=== PATIENT | male | born 1950 | race Caucasian/White ===

== ENCOUNTER 2020-12-18 16:52 | Inpatient (IN) | payer MEDICARE ==
[~2020-12-18] VITALS: Ht 175.3 cm; Wt 82.6 kg
[2020-12-18] MEDS ORDERED: ALBUTEROL SULF8.5 GM INH (16:55)
[2020-12-18] MEDS ORDERED: LASIX20 MG PO (16:56)
[2020-12-18] MEDS ORDERED: REMERON30 MG PO (16:56)
[2020-12-18] MEDS ORDERED: COREG 3.1253.125 MG PO (16:56)
[2020-12-18] MEDS ORDERED: OMEPRAZOLE40 MG PO (16:57)
[2020-12-18] MEDS ORDERED: PERCOCET 7.5/321 TAB PO (16:57)
[2020-12-18] MEDS ORDERED: SPIRIVA RESPIMAT4 GM INH (16:57)
[2020-12-18] MEDS ORDERED: ALDACTONE25 MG PO (16:58)
[2020-12-18] MEDS ORDERED: SYMBICORT 16010.2 GM INH (16:58)
[2020-12-18 17:16] LABS: BASOPHILS 0.7 % (0-2); EOSINOPHILS 2.6 % (0-7); HEMATOCRIT 43.1 % (42.0-54.0); HEMOGLOBIN 14.7 g/dL (13.5-17.5); IMMATURE GRANULOCYTES 0.2 % (0-5); LYMPHOCYTE ABS# 2.06 10x3/uL (1.32-3.57); LYMPHOCYTES 23.4 % (15-50); MCH 30.3 pg (26.0-34.0); MCHC 34.1 g/dL (31.0-37.0); MCV 88.9 fL (80.0-100.0); MEAN PLATELET VOLUME 9.7 fL (7.4-10.4); MONOCYTES 9.9 % (2-11); NEUTROPHIL ABS# 5.58 10x3/uL (1.78-5.38); NEUTROPHILS 63.2 % (40-80); PLATELET COUNT 237 10x3/uL (130-400); RBC 4.85 10x6/uL (4.20-6.10); RDW 12.9 % (11.5-14.5); WBC 8.8 10x3/uL (4.8-10.8)
[2020-12-18 17:44] LABS: CALC OSMOLALITY 276 mosm/kg (275-300); CALCIUM 8.8 mg/dL (8.5-10.1); CARBON DIOXIDE 24.1 mmol/L (21.0-32.0); CHLORIDE - SERUM 102 mmol/L (98-107); GLUCOSE 125 mg/dL (74-106); POTASSIUM - SERUM 3.9 mmol/L (3.5-5.1); SODIUM 138 mmol/L (136-145); UREA NITROGEN 12 mg/dL (7-18); eGFR NON AFRICAN AMERICAN 79 mL/min (90-120)
[2020-12-18 18:05] LABS: ALKALINE PHOSPHATASE 100 U/L (30-120); ALT (SGPT) 34 U/L (10-68); AMYLASE - SERUM 26 U/L (25-115); BILIRUBIN - TOTAL 0.31 mg/dL (0.2-1.3); LIPASE 106 U/L (73-393); PROTEIN - SERUM 7.4 g/dL (6.4-8.2)
[2020-12-18 18:11] LABS: TROPONIN-I 0.118 ng/mL (0.000-0.060)
[2020-12-18 20:24] LABS: CKMB 7.7 U/L (0.0-3.6); CREATINE KINASE 348 UL (21-232)
[2020-12-18 20:34] LABS: BILIRUBIN NEGATIVE (NEGATIVE); KETONE NEGATIVE (NEGATIVE); NITRITE NEGATIVE (NEGATIVE); UROBILINOGEN NORMAL mg/dL (< 2)
[2020-12-18 23:21] VITALS: BP 130/80; BMI 27.0
--- NOTE | 2020-12-19 02:23 | NUR ---
RECIEVED REPORT FROM ER. ARRIVED TO FLOOR IN W/C. A/O X4. UP AD KLEVER TO B/R. IV TO RT HAND SL. DENIES ANY NEEDS AT THIS TIME.
[2020-12-19 02:24] LABS: CKMB 6.9 U/L (0.0-3.6); CREATINE KINASE 276 UL (21-232)
[2020-12-19 02:25] LABS: TROPONIN-I 0.087 ng/mL (0.000-0.060)
[2020-12-19 04:02] VITALS: BP 117/83
[2020-12-19 07:39] VITALS: BP 123/60
[2020-12-19 09:13] LABS: CKMB 5.5 U/L (0.0-3.6); CREATINE KINASE 238 UL (21-232); TROPONIN-I 0.065 ng/mL (0.000-0.060)
[2020-12-19 11:54] VITALS: BP 138/75
[2020-12-19 12:28] VITALS: BMI 26.8
[2020-12-19 13:52] VITALS: Ht 175.3 cm; Wt 82.6 kg
[2020-12-19 15:49] VITALS: BP 135/73
--- NOTE | 2020-12-19 19:38 | NUR ---
RECIEVED LAYING IN BED WITH EYES OPEN AND TV ON. ALERT AND ORIENTED X4. UP AD KLEVER. SCD'S IN PLACE AND USING INCENTIVE SPIROMETER. IV TO RT JOANNA PATTERSON DENIES ANY NEEDS AT THIS TIME.
[2020-12-19 20:00] VITALS: BP 122/65
[2020-12-20] VITALS: BP 118/59; BP 145/82
[2020-12-20 04:00] VITALS: BP 120/66
[2020-12-20 08:10] VITALS: BP 123/73
[2020-12-20 16:11] VITALS: BP 118/62
--- NOTE | 2020-12-20 19:57 | NUR ---
RECIEVED UP AMBULATING AROUND ROOM. ALERT AND ORIENTED X4. UP AD KLEVER. NO IV AT THIS TIME. ON ROOM AIR. STILL STATES HE HAS ABDOMINAL PAIN AND THAT THERE IS A PLAN FOR WHEN HE GETS OUT OF THE HOSPITAL. REQUESTING PAIN MEDICATION AT HS. DENIES ANY NEEDS AT THIS TIME. TELEMETRY IN PLACE AND ENCOURAGED TO WEAR SCD'S AND USE INCENTIVE SPIROMETER.
[2020-12-20 20:42] VITALS: BP 126/67
[2020-12-21] VITALS: BP 107/60
[2020-12-21 04:00] VITALS: BP 106/59
[2020-12-21 08:32] VITALS: BP 125/67
--- NOTE | 2020-12-21 10:11 | NUR ---
Nutrition Follow-up: Pt reports appetite is ok and ate majority of breakfast this AM. Denies N/V/C/D. C/o abd distention & early satiety. GI following. Diet: Regular No new wt; last wt: 182# (12/19) Last BM: 12/20 Labs reviewed Meds noted: Lasix, Lactulose, Miralax, Protonix, Remeron, electrolyte protocol -Encourage PO intake and honor food preferences. -RD will follow up within 5-7 days if pt still admitted.
[2020-12-21 11:00] VITALS: BP 11/55
[2020-12-21 20:41] VITALS: BP 121/72
--- NOTE | 2020-12-21 21:00 | NUR ---
PT SITTING IN BED AAOX4. PT C/O ABDOMINAL PAIN. ABDOMEN IS DISTENDED AND FIRM WITH A VISIBLE PROTUSION. PT DENIES SOB BUT IS WEARING 2L BNC. PT STATES HE PUTS IT ON AND TAKES IT OFF NEEDED. PT REFUSED BOTH THE IV LASIX AND THE PO LASIX. EDUCATION DONE ABOUT MEDICATIONS AND PT VERBALIZED UNDERSTANDING BUT STILL REFUSED. PT HAS A STEADY GAIT AND AMBULATES INDEPENDENTLY. NO IV PRESENT.
[2020-12-22 04:20] VITALS: BP 132/73
[2020-12-22 05:39] LABS: BASOPHILS 0.6 % (0-2); EOSINOPHILS 4.8 % (0-7); HEMATOCRIT 40.6 % (42.0-54.0); HEMOGLOBIN 13.7 g/dL (13.5-17.5); IMMATURE GRANULOCYTES 0.3 % (0-5); LYMPHOCYTE ABS# 1.41 10x3/uL (1.32-3.57); LYMPHOCYTES 16.4 % (15-50); MCHC 33.7 g/dL (31.0-37.0); MCV 88.8 fL (80.0-100.0); MEAN PLATELET VOLUME 10.5 fL (7.4-10.4); MONOCYTES 11.3 % (2-11); NEUTROPHIL ABS# 5.74 10x3/uL (1.78-5.38); NEUTROPHILS 66.6 % (40-80); PLATELET COUNT 205 10x3/uL (130-400); RBC 4.57 10x6/uL (4.20-6.10); RDW 12.5 % (11.5-14.5); WBC 8.6 10x3/uL (4.8-10.8)
[2020-12-22 06:22] LABS: ALBUMIN 3.5 g/dL (3.4-5.0); ANION GAP 7.6 mmol/L (8-16); BILIRUBIN - TOTAL 0.23 mg/dL (0.2-1.3); CALCIUM 8.5 mg/dL (8.5-10.1); CARBON DIOXIDE 32.4 mmol/L (21.0-32.0); CREATININE - SERUM 1.1 mg/dL (0.6-1.3); PROTEIN - SERUM 6.9 g/dL (6.4-8.2)
[2020-12-22 08:23] VITALS: BP 120/69
--- NOTE | 2020-12-22 09:41 | EC ---
PATIENT:KELLEY GASTON DATE OF SERVICE: 12/18/20 SEX: M MEDICAL RECORD: [id number] DATE OF : [birth year] LOCATION:D.M2 D.211 AGE OF PATIENT: 70 ADMISSION DATE: 12/18/20 REFERRING PHYSICIAN: INTERPRETING PHYSICIAN: TAYLOR SCOTT MD ECHOCARDIOGRAM REPORT ECHO CHARGES 4 ECHO COMPLETE Date: 12/20/20 CLINICAL DIAGNOSIS: ABN TROPONIN ECHOCARDIOGRAPHIC MEASUREMENTS (adult normal given) AC root (d.<3.7cm) 3.6 cm LV Septum d (<1.2 cm> 1.4 cm Valve Excursion 1.4 cm LV Septum (systole) 2.0 cm Left Atria (s.<4.0cm> 4.4 cm LVPW d(<1.2cm) 0.8 cm RV (d.<2.3cm) 3.3 cm LVPW (sytole) 1.2 cm LV diastole(<5.6CM) 5.3 cm MV E-F(>70mm/sec) cm LV systole 3.6 cm LVOT Diameter 2.0 cm MV exc.(>10mm) 0.6 cm Est.ejection fraction (50-75%) % DOPPLER: LVIT cm/sec A 90 cm/sec E 49 cm/sec LA cm/sec RVSP 24 mmHg LVOT 218 cm/sec AOP1/2T m/s Asc. Ao 221 cm/sec RVOT 87 cm/sec RA cm/sec PA 86 cm/sec AV Gradient Peak 19.5 mmHg AV Mean 11.0 mmHg AV Area 3.1 cm MV Gradient Peak 3.4 mmHg MV Mean 1.0 mmHg MV Area cm COMMENTS: Success Coach: Gabrielle STACY Automotive Specialty Technician: 3 Dr. Moses TAPE# Pericardial Effusion N DATE OF SERVICE: Adequate 2D, color-flow imaging, spectral Doppler, and M-Mode FINDINGS: Borderline LVH. LV internal dimensions are normal. LV function shows mild global hypokinesis. EF is low limits of normal to mildly reduced at 45% to 50%. Bioprosthetic aortic valve was noted with good Doppler velocity and no AI. Left atrium was mildly dilated at 4.4 cm. Mitral valve shows no prolapse. Trace MR. Right side is grossly normal. Trace TR. ECHOCARDIOGRAM REPORT [id number] KELLEY GASTON TRANSINT:[id number] Voice Confirmation ID: [id number] DOCUMENT ID: [id number] TAYLOR SCOTT MD at 0941 CC: [id number] DICTATION DATE: 12/21/20826 TOUR ACTOR: 12/21/20 09 ADM IN [place] [id number] [place] [id number]
--- NOTE | 2020-12-22 11:14 | NUR ---
PER IDT MEETING, I PAGED CARDIOLOGY (NASIMA SPENCER APN) FOR UPDATE ON PATIENT. SHE IS GOING TO LOOK AT THE CHART AND GET BACK WITH US.
[2020-12-22 11:51] VITALS: BP 121/70
--- NOTE | 2020-12-22 14:11 | MORECARE ---
CASE MANAGEMENT DISCHARGE SUMMARY PATIENT: KELLEY GASTON UNIT: [id number] ADM DATE: 12/18/20 AGE: 70 : 51 SEX: M ROOM/BED: D.2115 AUTHOR: FELIBERTO AVILA PHYSICIAN: REFERRING PHYSICIAN: SCOTT DENNISON MD DATE OF SERVICE: 12/22/20 Discharge Plan Patient Name: KELLEY GASTON Facility: [facility]:[place] : 1950 Planned Disposition: Home Anticipated Discharge Date: Discharge Date: Expected LOS: Initial Reviewer: [id number] Initial Review Date: 12/22/2020 Generated: 12/22/20 3:10 pm Patient Name: KELLEY GASTON Page [id number] at 1411 All edits/amendments must be made on the electronic document DICTATION DATE: 12/22/20 1410 HOUSEHOLD REFRIGERATION MECHANIC: MURPHY 12/22/20 1410 RPT#: [id number] DC DATE: STATUS: ADM IN [facility] [address] [place] [address] END OF REPORT
[2020-12-22 15:14] VITALS: BP 133/72
--- NOTE | 2020-12-22 15:42 | MORECARE ---
CASE MANAGEMENT DISCHARGE SUMMARY PATIENT: KELLEY PRATT UNIT: [id number] ADM DATE: 12/18/20 AGE: 70 : 51 SEX: M ROOM/BED: D.[facility]5 AUTHOR: FELIBERTO AVILA PHYSICIAN: REFERRING PHYSICIAN: SCOTT DENNISON MD DATE OF SERVICE: 12/22/20 Discharge Plan Patient Name: KELLEY PRATT Facility: [facility]:[place] : 1950 Planned Disposition: Home Anticipated Discharge Date: Discharge Date: Expected LOS: Initial Reviewer: [email or web address] Initial Review Date: 12/22/2020 Generated: 12/22/20 4:41 pm DCPIA - Discharge Planning Initial Assessment Updated by [email or web address]: Maureen Vick on 12/22/20 3:41 pm * Is the patient Alert and Oriented? Yes * How many steps to enter\exit or inside your home? 0/0 * PCP Dr. Ferris * Pharmacy [facility] on [address] * Preadmission Environment Home with Family * ADLs Independent * Equipment Other Oxygen * Other Equipment Portable oxgyen * List name and contact numbers for known caregivers / representatives who currently or will assist patient after discharge: Aislinn Pratt - [facility] - [phone] * Verbal permission to speak to the caregivers and representatives has been obtained from the patient. Yes * Community resources currently utilized None * Additional services required to return to the preadmission environment? No * Can the patient safely return to the preadmission environment? Yes * Has this patient been hospitalized within the prior 30 days at any hospital? No Coverage Notice Reviewer: [id number] - Maureen Vick Notice Issued Date-Time: 12/22/2020 15:38 Notice Type: IM Discharge Notice Notice Delivered To: Patient Relationship to Patient: Self Veneer Manufacturer Name: Delivery Method: HAND - Hand Delivered Rosalia Days: Prior Verbal Notification: Recipient Understood Notice: Yes Recipient Signature: Yes Med Rec Note Co-signed by Attending: Coverage Notice Comment: IMM explained, signed, given, copy placed in MR Last DP export: 12/22/20 1:11 p Patient Name: KELLEY PRATT Page [id number] at 1542 All edits/amendments must be made on the electronic document DICTATION DATE: 12/22/20 154 NURSING CARE ATTENDANT: MURPHY 12/22/20 1541 RPT#: [id number] DC DATE: STATUS: ADM IN [facility] [address] [place] [address] END OF REPORT
--- NOTE | 2020-12-22 15:51 | MORECARE ---
CASE MANAGEMENT DISCHARGE SUMMARY PATIENT: KELLEY PRATT UNIT: [id number] ADM DATE: 12/18/20 AGE: 70 : 51 SEX: M ROOM/BED: D.2115 AUTHOR: MARGARITA,DOC PHYSICIAN: REFERRING PHYSICIAN: SCOTT DENNISON MD DATE OF SERVICE: 12/22/20 Discharge Plan Patient Name: KELLEY PRATT Facility: [facility]:[place] : 1950 Planned Disposition: Home Anticipated Discharge Date: Discharge Date: Expected LOS: Initial Reviewer: [email or web address] Initial Review Date: 12/22/2020 Generated: 12/22/20 4:50 pm Comments DCP- Discharge Planning Updated by [email or web address]: Maureen Vick on 12/22/20 2:[address] Patient Name: KELLEY PRATT Admission Status: ER Accout number: [id number] Admission Date: 12-18-2020 : 1950 Admission Diagnosis:UNSPECIFIED ABDOMINAL PAIN Attending: SCOTT DENNISON Current LOS: 4 Anticipated DC Date: Planned Disposition: Home Primary Insurance: [facility] MEDIC[employer] SOLUTIONS DC PLAN: Home with sister ANTICIPATED DC NEEDS: No needs identified CM met with patient to complete initial dc planning assessment. CM educated patient on the CM role and verbal consent given by patient to complete assessment. CM verified patient's address, phone number, and emergency contact phone numbers. Patient lives at home with his sister, Aislinn. At discharge patient plans to return and feels this is a safe discharge. CM discussed availability of home health, rehab services, and medical equipment. Patient states he is unsure if they are going to do his hernia operation prior to discharge, so is unsure of what his needs will be. Transportation provider at discharge will be either himself or his sister. I informed him that if he had received any new narcotics, that he will need his sister to drive, voiced understanding. States he has oxygen as needed at home on 2 liters NC and portable that he received from [facility], denies any other needs at this time. IMM explained, signed, given and copy placed in MR. CM will continue to follow and will assist as needed with dc plans/needs. Quarry Boss: Maureen Vick DCPIA - Discharge Planning Initial Assessment Updated by [id number]: Maureen Vick on 12/22/20 3:41 pm * Is the patient Alert and Oriented? Yes * How many steps to enter\exit or inside your home? 0/0 * PCP Dr. Ferris * Pharmacy [facility] on [address] * Preadmission Environment Home with Family * ADLs Independent * Equipment Other Oxygen * Other Equipment Portable oxgyen * List name and contact numbers for known caregivers / representatives who currently or will assist patient after discharge: Aislinn Pratt - [facility] [phone] * Verbal permission to speak to the caregivers and representatives has been obtained from the patient. Yes * Community resources currently utilized None * Additional services required to return to the preadmission environment? No * Can the patient safely return to the preadmission environment? Yes * Has this patient been hospitalized within the prior 30 days at any hospital? No Coverage Notice Reviewer: [id number] - Maureen Vick Notice Issued Date-Time: 12/22/2020 15:38 Notice Type: IM Discharge Notice Notice Delivered To: Patient Relationship to Patient: Self Traffic Lieutenant Name: Delivery Method: HAND - Hand Delivered Rosalia Days: Prior Verbal Notification: Recipient Understood Notice: Yes Recipient Signature: Yes Med Rec Note Co-signed by Attending: Coverage Notice Comment: IMM explained, signed, given, copy placed in MR Last DP export: 12/22/20 2:42 p Patient Name: KELLEY PRATT Page [phone] at 1551 All edits/amendments must be made on the electronic document DICTATION DATE: 12/22/201550 ROSE GRADER: MURPHY 12/22/20 155 RPT#: [id number] DC DATE: STATUS: ADM IN [facility] [address] [place] [address] END OF REPORT
[2020-12-22] MEDS ORDERED: CHRONULAC30 ML PO (18:16)
[2020-12-22] MEDS ORDERED: PERCOCET 5-3251 TAB PO (18:17)
--- NOTE | 2020-12-22 19:13 | NUR ---
DISCHARGE INSTRUCTIONS REVIEWED AND SIGNED. SCRIPT FOR PAIN MED GIVEN TO PT. WHEELED TO ER FOR DISCHARGE.
--- NOTE | 2020-12-23 13:49 | MORECARE ---
CASE MANAGEMENT DISCHARGE SUMMARY PATIENT: KELLEY PRATT UNIT: [id number] ADM DATE: 12/18/20 AGE: 70 : 51 SEX: M ROOM/BED: D.2025 AUTHOR: MARGARITA,DOC PHYSICIAN: REFERRING PHYSICIAN: SCOTT DENNISON MD DATE OF SERVICE: 12/23/20 Discharge Plan Patient Name: KELLEY PRATT Facility: [facility]:[place] : 1950 Planned Disposition: Home Anticipated Discharge Date: Discharge Date: 12/22/2020 Expected LOS: 0 Initial Reviewer: [email or web address] Initial Review Date: 12/22/2020 Generated: 12/23/20 2:48 pm Comments DCP- Discharge Planning Updated by [email or web address]: Maureen Vick on 12/22/20 2:[address] Patient Name: KELLEY PRATT Admission Status: ER Accout number: [id number] Admission Date: 12-18-2020 : 1950 Admission Diagnosis:UNSPECIFIED ABDOMINAL PAIN Attending: SCOTT DENNISON Current LOS: 4 Anticipated DC Date: Planned Disposition: Home Primary Insurance: [facility] MEDICARE SOLUTIONS DC PLAN: Home with sister ANTICIPATED DC NEEDS: No needs identified CM met with patient to complete initial dc planning assessment. CM educated patient on the CM role and verbal consent given by patient to complete assessment. CM verified patient's address, phone number, and emergency contact phone numbers. Patient lives at home with his sister, Aislinn. At discharge patient plans to return and feels this is a safe discharge. CM discussed availability of home health, rehab services, and medical equipment. Patient states he is unsure if they are going to do his hernia operation prior to discharge, so is unsure of what his needs will be. Transportation provider at discharge will be either himself or his sister. I informed him that if he had received any new narcotics, that he will need his sister to drive, voiced understanding. States he has oxygen as needed at home on 2 liters NC and portable that he received from [facility], denies any other needs at this time. IMM explained, signed, given and copy placed in MR. CM will continue to follow and will assist as needed with dc plans/needs. Endo Tech: Maureen Vick DCPIA - Discharge Planning Initial Assessment Updated by [id number]: Maureen Vick on 12/22/20 3:41 pm * Is the patient Alert and Oriented? Yes * How many steps to enter\exit or inside your home? 0/0 * PCP Dr. Ferris * Pharmacy [facility] on [address] * Preadmission Environment Home with Family * ADLs Independent * Equipment Other Oxygen * Other Equipment Portable oxgyen * List name and contact numbers for known caregivers / representatives who currently or will assist patient after discharge: Aislinn Pratt - [facility] [phone] * Verbal permission to speak to the caregivers and representatives has been obtained from the patient. Yes * Community resources currently utilized None * Additional services required to return to the preadmission environment? No * Can the patient safely return to the preadmission environment? Yes * Has this patient been hospitalized within the prior 30 days at any hospital? No Coverage Notice Reviewer: [id number] - Maureen Vick Notice Issued Date-Time: 12/22/2020 15:38 Notice Type: IM Discharge Notice Notice Delivered To: Patient Relationship to Patient: Self Group Home Supervisor Name: Delivery Method: HAND - Hand Delivered Rosalia Days: Prior Verbal Notification: Recipient Understood Notice: Yes Recipient Signature: Yes Med Rec Note Co-signed by Attending: Coverage Notice Comment: IMM explained, signed, given, copy placed in MR Last DP export: 12/22/20 2:51 p Patient Name: KELLEY PRATT Page [id number] at 1349 All edits/amendments must be made on the electronic document DICTATION DATE: 12/23/20 1348 GEOPHYSICAL LABORATORY DIRECTOR: MURPHY 12/23/20 1348 RPT#: [id number] DC DATE:12/22/20 STATUS: DIS IN [facility] [address] [place] [address] END OF REPORT
[2020-12-27] MEDS ORDERED: BAYER CHEWABLE81 MG PO (11:09)
[2020-12-27] MEDS ORDERED: PERCOCET 10-321 EAC1 PO (11:10)
== END 2020-12-22 19:14 | disposition home or self-care (01) | DRG 395 ==
LOC: D.ER 16:52 → D.M2 19:41
PROVIDERS: Emergency Medicine; Family Medicine; ADMIT Family Medicine; ATTEND Family Medicine
DX: K40.90 Unilateral inguinal hernia, without obstruction or gangrene, not specified as recurrent (principal); K57.90 Diverticulosis of intestine, part unspecified, without perforation or abscess without bleeding; K70.30 Alcoholic cirrhosis of liver without ascites; J44.9 Chronic obstructive pulmonary disease, unspecified; I10 Essential (primary) hypertension; Z87.891 Personal history of nicotine dependence; B18.2 Chronic viral hepatitis C; N32.89 Other specified disorders of bladder; G89.29 Other chronic pain; M54.5 Low back pain

== ENCOUNTER 2020-12-28 06:31 | Day surgery (SDC) | payer MEDICARE, MEDICAID ==
[~2020-12-28] VITALS: Ht 175.3 cm; Wt 83.9 kg
--- NOTE | ~2020-12-28 | OP ---
PATIENT NAME: KELLEY GASTON JR MEDICAL RECORD: [id number] :[birth year] LOCATION:[place] ADMISSION DATE: SURGEON: GAEL HENRIQUEZ MD DATE OF OPERATION: 12/28/2020 PREOPERATIVE DIAGNOSES: 1. Right inguinal hernia. 2. Ventral hernia. 3. Hepatitis C. 4. Chronic obstructive pulmonary disease. 5. Hypertension. 6. History of aortic valve replacement. 7. History of liver cancer. POSTOPERATIVE DIAGNOSES: 1. Right inguinal hernia. 2. Ventral hernia. 3. Hepatitis C. 4. Chronic obstructive pulmonary disease. 5. Hypertension. 6. History of aortic valve replacement. 7. History of liver cancer. PROCEDURES: 1. Ventral hernia repair with 4.[address] mesh. 2. Right inguinal hernia repair with medium PHS mesh. SURGEON: Gael Henriquez MD REPORT OF PROCEDURE: The patient's abdomen was prepped and draped in sterile fashion. An oblique incision was made above the inguinal ligament on the right side. Electrocautery was used to dissect through the subcutaneous tissues to the external oblique fascia. This fascia was opened up to the external ring using electrocautery. An ilioinguinal nerve was found and high ligated. We then placed a Langeloth around the spermatic cord. The patient had a fatty right inguinal indirect hernia defect. This was pushed back down into the abdominal cavity. I then opened up the inguinal floor and the preperitoneal space of Retzius. A medium PHS mesh was then inserted and sutured down on all sides with interrupted 0 Vicryls. The wound was irrigated out with normal saline. The external oblique fascia was closed with running 2-0 Vicryl. Mckayla's was closed with interrupted 3-0 Vicryl and the skin was closed with running subcutaneous 5-0 Monocryl. We then approached the umbilicus. A semicircular infraumbilical incision was made and electrocautery was used to dissect through the subcutaneous tissues and we elevated the umbilical stalk just above the umbilicus. There was a large fat-containing hernia defect. This was freed up from the umbilicus. We eventually were able to open up the hernia sac and push the fatty contents back into the abdominal cavity. The hernia defect was about 2.5 cm in greatest diameter. We freed up the fascia above and below and then inserted a 4.[address] mesh. This was sutured on all 4 sides with interrupted 0 Prolenes and the fascia was closed transversely with a running 0 Vicryl. The umbilicus was tacked down with a single interrupted 3-0 Vicryl and the subcutaneous tissues were reapproximated with interrupted 3-0 Vicryl. The skin was closed with a running subcutaneous 5-0 Monocryl. I infused a total of 20 mL of 0.25% Marcaine with epinephrine to the surrounding tissues and the wounds were dressed appropriately. OPERATIVE REPORT [id number] KELLEY GASTON JR COMPLICATIONS: None. CONDITION: Stable. ANESTHESIA: General endotracheal and local. BLOOD LOSS: Minimal. TRANSINT:[id number] Voice Confirmation ID: [id number] DOCUMENT ID: [id number] GAEL HENRIQUEZ MD CC: SRUTHI PEÑA MD [id number] DICTATION DATE: 12/28/20 1150 SENIOR ESTIMATOR: 12/28/20 1224 [facility] [address] [place] [address]
[~2020-12-28 06:31] MED LIST: ALBUTEROL SULF8.5 GM INH; ALDACTONE25 MG PO; BAYER CHEWABLE81 MG PO; CHRONULAC30 ML PO; COREG 3.1253.125 MG PO; LASIX20 MG PO; OMEPRAZOLE40 MG PO; PERCOCET 10-321 EAC1 PO; PERCOCET 5-3251 TAB PO; PERCOCET 7.5/321 TAB PO; REMERON30 MG PO; SPIRIVA RESPIMAT4 GM INH; SYMBICORT 16010.2 GM INH
[2020-12-28 07:16] LABS: ANION GAP 13.5 mmol/L (8-16); CALCIUM 9.7 mg/dL (8.5-10.1); CARBON DIOXIDE 26.7 mmol/L (21.0-32.0); CREATININE - SERUM 1.1 mg/dL (0.6-1.3); POTASSIUM - SERUM 4.2 mmol/L (3.5-5.1)
[2020-12-28 07:29] LABS: BASOPHILS 0.6 % (0-2); EOSINOPHILS 3.1 % (0-7); HEMOGLOBIN 15.7 g/dL (13.5-17.5); IMMATURE GRANULOCYTES 0.2 % (0-5); LYMPHOCYTE ABS# 2.22 10x3/uL (1.32-3.57); LYMPHOCYTES 22.8 % (15-50); MCHC 34.1 g/dL (31.0-37.0); MCV 87.8 fL (80.0-100.0); MEAN PLATELET VOLUME 10.3 fL (7.4-10.4); MONOCYTES 8.3 % (2-11); NEUTROPHIL ABS# 6.34 10x3/uL (1.78-5.38); RBC 5.24 10x6/uL (4.20-6.10); RDW 12.7 % (11.5-14.5); WBC 9.8 10x3/uL (4.8-10.8)
[2020-12-28 07:32] LABS: PLATELET COUNT 276 10x3/uL (130-400)
[2020-12-28 08:26] VITALS: BP 118/73; Ht 175.3 cm; Wt 83.9 kg
[2020-12-28] MEDS ORDERED: TYLENOL #4 W/CO1 TAB PO (11:41)
--- NOTE | 2020-12-28 17:57 | NUR ---
AMBULATES TO BR AND VOIDS WITHOUT DIFFICULTY. IV D/C'D WITH CANNULA INTACT, PRESSURE HELD AND DRSG PLACED. DISCHARGE TEACHING DONE AND PT VERBALIZED AN UNDERSTANDING. STATES PAIN IS TOLERABLE AND WANTS TO GO HOME
== END 2020-12-28 13:15 | disposition home or self-care (01) ==
LOC: D.OPS 06:31
PROVIDERS: ATTEND Surgery
DX: K40.90 Unilateral inguinal hernia, without obstruction or gangrene, not specified as recurrent (principal); K43.9 Ventral hernia without obstruction or gangrene; B19.20 Unspecified viral hepatitis C without hepatic coma; J44.9 Chronic obstructive pulmonary disease, unspecified; I10 Essential (primary) hypertension; Z85.05 Personal history of malignant neoplasm of liver; Z95.4 Presence of other heart-valve replacement; K70.30 Alcoholic cirrhosis of liver without ascites